=== PATIENT | female | born 1970 | race Caucasian/White ===

== ENCOUNTER 2018-06-12 10:11 | Emergency (ER) | payer OTHER ==
[~2018-06-12] VITALS: Ht 157.5 cm; Wt 54.5 kg
[~2018-06-12 10:11] MED LIST: ASPI81TA50; CETI10CA PO; NASAL STEROID
[2018-06-12 10:36] VITALS: BP 126/82
[2018-06-12] MEDS ORDERED: DEXAMETHASONE 4 MG TABLET ONE (11:48)
[2018-06-12] MEDS ORDERED: DEXAMETHASONE 4 MG TABLET PO ONE (12:00)
== END 2018-06-12 12:18 | disposition home or self-care (01) ==
LOC: ED 12:05
DX: R05 Cough (principal); J02.9 Acute pharyngitis, unspecified; M79.1 Myalgia; R09.81 Nasal congestion
CPT/HCPCS: 87265; 99283

== ENCOUNTER → 2019-11-09 | Outpatient (CLI) | payer OTHER ==
[~2019-11-09] MED LIST changes: +BLAC20TA PO; +CLON1PAT2 TD; +PSEU120T10 PO
[2019-11-09 12:42] LABS: BASOPHILS # (AUTO) 0.01 x10^3/uL (0-0.1); BASOPHILS % (AUTO) 0 % (0-1); EOSINOPHILS # (AUTO) 0.07 x10^3/uL (0-0.4); EOSINOPHILS % (AUTO) 1 % (1-7); LYMPHOCYTES # (AUTO) 1.36 x10^3/uL (1-3.4); LYMPHOCYTES % (AUTO) 16 % (22-44); MD NO; MEAN CORPUSCULAR HEMOGLOBIN 32.3 pg (27.0-34.8); MEAN CORPUSCULAR HGB CONC 34.1 g/dL (32.4-35.8); MEAN CORPUSCULAR VOLUME 94.9 fL (80-100); MEAN PLATELET VOLUME 6.7 fL (7.4-10.4); MONOCYTES % (AUTO) 5 % (2-9); NEUTROPHILS # (AUTO) 6.79 x10^3/uL (1.8-6.8); NEUTROPHILS % (AUTO) 79 % (42-75); PLATELET COUNT 394 x10^3/uL (130-400); RED BLOOD COUNT 4.22 x10^6/uL (3.82-5.3)
[2019-11-09 12:50] LABS: CHLORIDE 104 mmol/L (98-107)
[2019-11-09 12:55] LABS: ANION GAP 6 mmol/L (5-15); CALCIUM 9.1 mg/dL (8.5-10.1); CREATININE 0.61 mg/dL (0.55-1.02)
== END | disposition home or self-care (01) ==
LOC: STAR 11:17
PROVIDERS: ATTEND Obstetrics & Gynecology
DX: Z01.818 Encounter for other preprocedural examination (principal); I44.0 Atrioventricular block, first degree; N95.0 Postmenopausal bleeding
CPT/HCPCS: 36415; 80048; 85025; 93005

== ENCOUNTER 2019-11-15 05:46 | Day surgery (SDC) | payer OTHER ==
[~2019-11-15] VITALS: Ht 157.5 cm; Wt 61.2 kg
[2019-11-15] MEDS ORDERED: SILVER NITRATE STICK TP ONE (06:45)
[2019-11-15] MEDS ORDERED: BUPIVACAINE/PF-EPI 0.25% 1:200K ONE (06:45)
[2019-11-15] MEDS ORDERED: LACTATED RINGERS 1,000 ML IV SCH (06:58)
[2019-11-15] MEDS ORDERED: LIDOCAINE-MPF 1%, 2ML INFIL ONE (07:00)
[2019-11-15 07:02] VITALS: BP 118/76
[2019-11-15] MEDS ORDERED: MIDAZOLAM 1 MG/ML, 2ML ONE (07:07)
[2019-11-15] MEDS ORDERED: ASPI-496 PO (07:13)
[2019-11-15] MEDS ORDERED: PROPOFOL 10 MG/ML, 20ML ONE (07:37)
[2019-11-15] MEDS ORDERED: DEXAMETHASONE 4 MG/ML, 1ML ONE (07:37)
[2019-11-15] MEDS ORDERED: KETOROLAC 30 MG/1 ML ONE (07:37)
[2019-11-15] MEDS ORDERED: ONDANSETRON 2MG/ML, 2ML ONE (07:37)
[2019-11-15] MEDS ORDERED: CEFAZOLIN 1,000 MG ONE (07:37)
[2019-11-15] MEDS ORDERED: GLYCOPYRROLATE 0.2MG/1ML, 5ML ONE (07:37)
[2019-11-15] MEDS ORDERED: FENTANYL PF 100 MCG/2ML ONE (07:52)
[2019-11-15] MEDS ORDERED: hydrALAzine 20 MG/ML, 1ML IV PRN (08:30)
[2019-11-15] MEDS ORDERED: ACETAMINOPHEN 325 MG TABLET PO PRN (08:30)
[2019-11-15] MEDS ORDERED: ONDANSETRON 2MG/ML, 2ML IV PRN (08:30)
[2019-11-15] MEDS ORDERED: OXYcodone 5 MG/5 ML ORAL.SOL UDC PO PRN (08:30)
[2019-11-15] MEDS ORDERED: HYDROmorphone 2 MG/ML, 1ML IVPush PRN (08:30)
[2019-11-15] MEDS ORDERED: LABETALOL 5MG/ML, 20ML IV PRN (08:30)
[2019-11-15] MEDS ORDERED: FENTANYL PF 100 MCG/2ML IV PRN (08:30)
== END 2019-11-15 10:30 | disposition home or self-care (01) ==
LOC: OUT 05:46
PROVIDERS: ATTEND Obstetrics & Gynecology
DX: N95.0 Postmenopausal bleeding (principal); N84.0 Polyp of corpus uteri; Z90.49 Acquired absence of other specified parts of digestive tract; Z98.890 Other specified postprocedural states; Z88.8 Allergy status to other drugs, medicaments and biological substances; Z88.1 Allergy status to other antibiotic agents
CPT/HCPCS: 36415; 58558; 86850; 86900; 88305; J0690; J1100; J1885; J2250; J2405; J2704; J3010; J7120

== ENCOUNTER → 2019-12-10 | Outpatient (CLI) | payer OTHER ==
[~2019-12-10] MED LIST changes: +ASPI-496 PO
== END | disposition home or self-care (01) ==
LOC: CFH 08:55
PROVIDERS: ATTEND Family Medicine
DX: I36.1 Nonrheumatic tricuspid (valve) insufficiency (principal); R10.31 Right lower quadrant pain
CPT/HCPCS: 76770; 76856; 93306

== ENCOUNTER → 2020-02-22 | Outpatient (CLI) | payer OTHER | END | disposition home or self-care (01) | LOC: CFH 09:12 | PROVIDERS: ATTEND Obstetrics & Gynecology | DX: N83.201 Unspecified ovarian cyst, right side (principal) | CPT/HCPCS: 76830 ==

== ENCOUNTER → 2020-09-19 | Outpatient (CLI) | payer OTHER | END | disposition home or self-care (01) | LOC: RAD 08:46 | PROVIDERS: ATTEND Family Medicine | DX: S73.102A Unspecified sprain of left hip, initial encounter (principal); X58.XXXA Exposure to other specified factors, initial encounter; Y93.89 Activity, other specified; Y92.89 Other specified places as the place of occurrence of the external cause; Y99.8 Other external cause status | CPT/HCPCS: 72110 ==

== ENCOUNTER → 2020-10-18 | Outpatient (CLI) | payer OTHER | END | disposition home or self-care (01) | LOC: CFH 16:06 | PROVIDERS: ATTEND Family Medicine | DX: M51.16 Intervertebral disc disorders with radiculopathy, lumbar region (principal) | CPT/HCPCS: 72148 ==

== ENCOUNTER → 2020-11-27 | Outpatient (CLI) | payer OTHER ==
[~2020-11-27] MED LIST changes: +ASCO100018 PO; +CHOL10003 PO; +COLLAGEN COMPLEX PO; +TOLT4CAP12 PO
== END | disposition home or self-care (01) ==
LOC: STAR 11:16
PROVIDERS: ATTEND Orthopaedic Surgery Adult Reconstructive Orthopaedic Surgery
DX: Z20.822 Contact with and (suspected) exposure to COVID-19 (principal); M25.552 Pain in left hip
CPT/HCPCS: 87635

== ENCOUNTER 2020-12-01 05:40 | Day surgery (SDC) | payer OTHER ==
[~2020-12-01] VITALS: Ht 157.5 cm; Wt 63.1 kg
[2020-12-01] MEDS ORDERED: CHLORHEXIDINE 15 ML UDC MM ONE (06:00)
[2020-12-01] MEDS ORDERED: LACTATED RINGERS 1,000 ML IV SCH (06:00)
[2020-12-01 06:02] VITALS: BP 107/73
[2020-12-01] MEDS ORDERED: CHLORHEXIDINE 15 ML UDC ONE (06:05)
[2020-12-01] MEDS ORDERED: BUPIVACAINE/PF 0.25% ONE (06:38)
[2020-12-01] MEDS ORDERED: BUPIVACAINE/PF 0.5% ONE (06:38)
[2020-12-01] MEDS ORDERED: EPINEPHRINE 1 MG/ML, 1ML ONE (06:39)
[2020-12-01 06:47] LABS: HCG UR SG 1.014 (1.003-1.030)
[2020-12-01] MEDS ORDERED: MIDAZOLAM 1 MG/ML, 2ML ONE (06:53)
[2020-12-01] MEDS ORDERED: FENTANYL PF 250 MCG/5ML ONE (06:54)
[2020-12-01] MEDS ORDERED: KETAMINE 50 MG/ML, 10ML ONE (06:58)
[2020-12-01] MEDS ORDERED: PROPOFOL 50 ML ONE (07:12)
[2020-12-01] MEDS ORDERED: LABETALOL 5MG/ML, 20ML IV PRN (07:30)
[2020-12-01] MEDS ORDERED: hydrALAzine 20 MG/ML, 1ML IV PRN (07:30)
[2020-12-01] MEDS ORDERED: MEPERIDINE/PF 25MG/0.5ML IVPush PRN (07:30)
[2020-12-01] MEDS ORDERED: OXYcodone 5 MG/5 ML ORAL.SOL UDC PO PRN (07:30)
[2020-12-01] MEDS ORDERED: ALBUTEROL SULFATE 2.5 MG/3 ML NPPB PRN (07:30)
[2020-12-01] MEDS ORDERED: morphine SULFATE 10 MG/ML, 1ML IVPush PRN (07:30)
[2020-12-01] MEDS ORDERED: LORazepam 2 MG/ML, 1ML IVPush PRN (07:30)
[2020-12-01] MEDS ORDERED: METHOCARBAMOL 1,000 MG in DEXTROSE 5% 100 ML IV PRN (07:30)
[2020-12-01] MEDS ORDERED: PROMETHAZINE 25 MG/ML, 1ML IVPush PRN (07:30)
[2020-12-01] MEDS ORDERED: ACETAMINOPHEN 325 MG TABLET PO PRN (07:30)
[2020-12-01] MEDS ORDERED: NEOSPORIN OINT. PKT 1 PACKET ONE (07:36)
[2020-12-01] MEDS ORDERED: CEFAZOLIN 1,000 MG ONE (07:59)
[2020-12-01] MEDS ORDERED: GLYCOPYRROLATE 0.2MG/1ML, 5ML ONE (07:59)
[2020-12-01] MEDS ORDERED: PROPOFOL 10 MG/ML, 20ML ONE (07:59)
[2020-12-01] MEDS ORDERED: ONDANSETRON 2MG/ML, 2ML ONE (07:59)
[2020-12-01] MEDS ORDERED: ROCURONIUM 10MG/ML,5ML ONE (07:59)
[2020-12-01] MEDS ORDERED: NEOSTIGMINE 1 MG/ML, 10ML ONE (07:59)
[2020-12-01] MEDS ORDERED: DEXAMETHASONE 4 MG/ML, 5ML ONE (08:00)
[2020-12-01] MEDS: FENTANYL PF 100 MCG/2ML IV PRN ×2 (09:05→09:10)
[2020-12-01] MEDS ORDERED: OXYcodone 5 MG/5 ML ORAL.SOL UDC ONE (09:05)
[2020-12-01] MEDS ORDERED: FENTANYL PF 100 MCG/2ML ONE (09:05)
[2020-12-01] MEDS ORDERED: KETOROLAC 30 MG/1 ML ONE (16:35)
== END 2020-12-01 11:00 | disposition home or self-care (01) ==
LOC: OUT 05:40
PROVIDERS: ATTEND Orthopaedic Surgery Adult Reconstructive Orthopaedic Surgery
DX: M25.552 Pain in left hip (principal); M24.152 Other articular cartilage disorders, left hip; M94.252 Chondromalacia, left hip; M25.852 Other specified joint disorders, left hip; I42.9 Cardiomyopathy, unspecified; Z88.1 Allergy status to other antibiotic agents; Z88.2 Allergy status to sulfonamides; Z88.8 Allergy status to other drugs, medicaments and biological substances; Z79.899 Other long term (current) drug therapy; Z79.82 Long term (current) use of aspirin; Z72.89 Other problems related to lifestyle; Z98.890 Other specified postprocedural states
CPT/HCPCS: 29914; 73501; 81025; J0171; J0690; J1100; J1885; J2250; J2405; J2704; J2710; J3010; J7120; 76000

== ENCOUNTER 2021-06-28 11:24 | Outpatient (CLI) | payer OTHER ==
[~2021-06-28 11:24] MED LIST changes: -TOLT4CAP12 PO; +TOLT4CAP27 PO
[2021-06-28] MEDS ORDERED: GADOTERATE 7.5 MMOL/15ML SYR ONE (13:33)
== END 2021-06-28 23:59 | disposition home or self-care (01) ==
LOC: RAD 11:24
PROVIDERS: ATTEND Family Medicine
DX: H81.4 Vertigo of central origin (principal); R20.2 Paresthesia of skin
CPT/HCPCS: 70553; A9575